=== PATIENT | male | born 1965 | race Caucasian/White ===

== ENCOUNTER → 2018-07-08 | Outpatient (CLI) | payer OTHER, BC | LOC: HYPER 07-06 16:07 | DX: T81.89XA Other complications of procedures, not elsewhere classified, initial encounter (principal); L97.512 Non-pressure chronic ulcer of other part of right foot with fat layer exposed; N18.6 End stage renal disease; K21.9 Gastro-esophageal reflux disease without esophagitis; M10.9 Gout, unspecified; M79.671 Pain in right foot; M86.8X8 Other osteomyelitis, other site; F41.9 Anxiety disorder, unspecified; Z94.0 Kidney transplant status; Z89.421 Acquired absence of other right toe(s); Y92.89 Other specified places as the place of occurrence of the external cause; Y83.8 Other surgical procedures as the cause of abnormal reaction of the patient, or of later complication, without mention of misadventure at the time of the procedure ==

== ENCOUNTER → 2018-07-20 | Outpatient (CLI) | payer OTHER, BC | LOC: HYPER 07:15 | DX: T81.89XD Other complications of procedures, not elsewhere classified, subsequent encounter (principal); L97.512 Non-pressure chronic ulcer of other part of right foot with fat layer exposed; M86.8X7 Other osteomyelitis, ankle and foot; M79.671 Pain in right foot; N18.6 End stage renal disease; M10.9 Gout, unspecified; F41.9 Anxiety disorder, unspecified; Z94.83 Pancreas transplant status; Z94.0 Kidney transplant status; Y83.8 Other surgical procedures as the cause of abnormal reaction of the patient, or of later complication, without mention of misadventure at the time of the procedure ==

== ENCOUNTER → 2018-08-03 | Outpatient (CLI) | payer OTHER, BC | LOC: HYPER 07:12 | DX: T81.89XD Other complications of procedures, not elsewhere classified, subsequent encounter (principal); L97.516 Non-pressure chronic ulcer of other part of right foot with bone involvement without evidence of necrosis; R60.0 Localized edema; M86.8X8 Other osteomyelitis, other site; H40.9 Unspecified glaucoma; K21.9 Gastro-esophageal reflux disease without esophagitis; N18.6 End stage renal disease; M10.9 Gout, unspecified; F41.9 Anxiety disorder, unspecified; Z94.83 Pancreas transplant status; Z94.0 Kidney transplant status; Y83.8 Other surgical procedures as the cause of abnormal reaction of the patient, or of later complication, without mention of misadventure at the time of the procedure ==

== ENCOUNTER → 2018-08-17 | Outpatient (CLI) | payer OTHER, BC | LOC: HYPER 06:55 | DX: T81.89XD Other complications of procedures, not elsewhere classified, subsequent encounter (principal); L97.512 Non-pressure chronic ulcer of other part of right foot with fat layer exposed; L84 Corns and callosities; R60.0 Localized edema; N18.6 End stage renal disease; H40.9 Unspecified glaucoma; M10.9 Gout, unspecified; M86.8X8 Other osteomyelitis, other site; K21.9 Gastro-esophageal reflux disease without esophagitis; F41.9 Anxiety disorder, unspecified; Z94.83 Pancreas transplant status; Z94.0 Kidney transplant status; Y83.8 Other surgical procedures as the cause of abnormal reaction of the patient, or of later complication, without mention of misadventure at the time of the procedure ==

== ENCOUNTER → 2018-08-31 | Outpatient (CLI) | payer OTHER, BC | LOC: HYPER 06:38 | DX: T81.89XD Other complications of procedures, not elsewhere classified, subsequent encounter (principal); L97.512 Non-pressure chronic ulcer of other part of right foot with fat layer exposed; M79.671 Pain in right foot; N18.6 End stage renal disease; L84 Corns and callosities; M10.9 Gout, unspecified; M86.8X7 Other osteomyelitis, ankle and foot; R60.0 Localized edema; F41.9 Anxiety disorder, unspecified; Z94.83 Pancreas transplant status; Z94.0 Kidney transplant status; Y83.8 Other surgical procedures as the cause of abnormal reaction of the patient, or of later complication, without mention of misadventure at the time of the procedure ==

== ENCOUNTER → 2018-09-10 | Outpatient (CLI) | payer OTHER, BC | LOC: RAD 10:57 | DX: M19.071 Primary osteoarthritis, right ankle and foot (principal); M21.171 Varus deformity, not elsewhere classified, right ankle ==

== ENCOUNTER → 2018-09-14 | Outpatient (CLI) | payer OTHER, BC | LOC: HYPER 06:14 | DX: T87.89 Other complications of amputation stump (principal); L97.516 Non-pressure chronic ulcer of other part of right foot with bone involvement without evidence of necrosis; L84 Corns and callosities; R60.0 Localized edema; N18.6 End stage renal disease; H40.9 Unspecified glaucoma; M10.9 Gout, unspecified; M86.8X8 Other osteomyelitis, other site; K21.9 Gastro-esophageal reflux disease without esophagitis; F41.9 Anxiety disorder, unspecified; Z94.83 Pancreas transplant status; Z94.0 Kidney transplant status; Y83.5 Amputation of limb(s) as the cause of abnormal reaction of the patient, or of later complication, without mention of misadventure at the time of the procedure ==

== ENCOUNTER → 2018-09-16 | Outpatient (CLI) | payer OTHER, BC | LOC: MRI 09:05 | DX: T87.89 Other complications of amputation stump (principal); L97.512 Non-pressure chronic ulcer of other part of right foot with fat layer exposed; R60.1 Generalized edema; Y83.8 Other surgical procedures as the cause of abnormal reaction of the patient, or of later complication, without mention of misadventure at the time of the procedure ==

== ENCOUNTER → 2018-09-28 | Outpatient (CLI) | payer OTHER, BC | LOC: HYPER 06:52 | DX: T81.89XD Other complications of procedures, not elsewhere classified, subsequent encounter (principal); L97.512 Non-pressure chronic ulcer of other part of right foot with fat layer exposed; M79.671 Pain in right foot; N18.6 End stage renal disease; L84 Corns and callosities; M10.9 Gout, unspecified; M86.8X8 Other osteomyelitis, other site; R60.0 Localized edema; F41.9 Anxiety disorder, unspecified; Z94.83 Pancreas transplant status; Z94.0 Kidney transplant status; Y83.8 Other surgical procedures as the cause of abnormal reaction of the patient, or of later complication, without mention of misadventure at the time of the procedure ==

== ENCOUNTER → 2018-10-13 | Outpatient (CLI) | payer OTHER, BC | LOC: HYPER 06:47 | DX: T81.89XD Other complications of procedures, not elsewhere classified, subsequent encounter (principal); L97.512 Non-pressure chronic ulcer of other part of right foot with fat layer exposed; N18.6 End stage renal disease; L84 Corns and callosities; M10.9 Gout, unspecified; M79.671 Pain in right foot; M86.8X8 Other osteomyelitis, other site; R60.0 Localized edema; F41.9 Anxiety disorder, unspecified; Z94.83 Pancreas transplant status; Z94.0 Kidney transplant status; Y83.8 Other surgical procedures as the cause of abnormal reaction of the patient, or of later complication, without mention of misadventure at the time of the procedure ==

== ENCOUNTER → 2018-10-27 | Outpatient (CLI) | payer OTHER, BC | LOC: HYPER 06:27 | DX: T81.89XD Other complications of procedures, not elsewhere classified, subsequent encounter (principal); L97.512 Non-pressure chronic ulcer of other part of right foot with fat layer exposed; M79.671 Pain in right foot; N18.6 End stage renal disease; L84 Corns and callosities; M10.9 Gout, unspecified; M86.8X8 Other osteomyelitis, other site; R60.0 Localized edema; F41.9 Anxiety disorder, unspecified; Z94.83 Pancreas transplant status; Z94.0 Kidney transplant status; Y83.8 Other surgical procedures as the cause of abnormal reaction of the patient, or of later complication, without mention of misadventure at the time of the procedure ==

== ENCOUNTER → 2018-11-17 | Outpatient (CLI) | payer OTHER, BC | LOC: HYPER 06:25 | DX: T81.89XD Other complications of procedures, not elsewhere classified, subsequent encounter (principal); L97.512 Non-pressure chronic ulcer of other part of right foot with fat layer exposed; M79.671 Pain in right foot; N18.6 End stage renal disease; R60.0 Localized edema; L84 Corns and callosities; M10.9 Gout, unspecified; M86.8X8 Other osteomyelitis, other site; F41.9 Anxiety disorder, unspecified; Z94.83 Pancreas transplant status; Z94.0 Kidney transplant status; Y83.8 Other surgical procedures as the cause of abnormal reaction of the patient, or of later complication, without mention of misadventure at the time of the procedure ==

== ENCOUNTER → 2018-12-01 | Outpatient (CLI) | payer OTHER, BC | LOC: HYPER 06:53 | DX: T81.89XD Other complications of procedures, not elsewhere classified, subsequent encounter (principal); L97.512 Non-pressure chronic ulcer of other part of right foot with fat layer exposed; N18.6 End stage renal disease; M10.9 Gout, unspecified; M79.671 Pain in right foot; M86.8X7 Other osteomyelitis, ankle and foot; R60.0 Localized edema; F41.9 Anxiety disorder, unspecified; Z94.83 Pancreas transplant status; Z94.0 Kidney transplant status; Y83.8 Other surgical procedures as the cause of abnormal reaction of the patient, or of later complication, without mention of misadventure at the time of the procedure ==

== ENCOUNTER → 2018-12-22 | Outpatient (CLI) | payer OTHER, BC | LOC: HYPER 06:50 | DX: T81.89XD Other complications of procedures, not elsewhere classified, subsequent encounter (principal); L97.516 Non-pressure chronic ulcer of other part of right foot with bone involvement without evidence of necrosis; M86.8X8 Other osteomyelitis, other site; R60.0 Localized edema; N18.6 End stage renal disease; H40.9 Unspecified glaucoma; K21.9 Gastro-esophageal reflux disease without esophagitis; M10.9 Gout, unspecified; F41.9 Anxiety disorder, unspecified; Z94.83 Pancreas transplant status; Z94.0 Kidney transplant status; Y83.8 Other surgical procedures as the cause of abnormal reaction of the patient, or of later complication, without mention of misadventure at the time of the procedure ==

== ENCOUNTER → 2019-01-24 | Outpatient (CLI) | payer OTHER, BC | LOC: HYPER 07:47 | DX: T81.89XD Other complications of procedures, not elsewhere classified, subsequent encounter (principal); L97.516 Non-pressure chronic ulcer of other part of right foot with bone involvement without evidence of necrosis; L84 Corns and callosities; H40.9 Unspecified glaucoma; R60.0 Localized edema; K21.9 Gastro-esophageal reflux disease without esophagitis; M79.671 Pain in right foot; M10.9 Gout, unspecified; M86.8X8 Other osteomyelitis, other site; N18.6 End stage renal disease; F41.9 Anxiety disorder, unspecified; Z94.83 Pancreas transplant status; Z94.0 Kidney transplant status; Y83.8 Other surgical procedures as the cause of abnormal reaction of the patient, or of later complication, without mention of misadventure at the time of the procedure ==

== ENCOUNTER → 2019-02-21 | Outpatient (CLI) | payer OTHER, BC | LOC: HYPER 11:30 | DX: T81.89XD Other complications of procedures, not elsewhere classified, subsequent encounter (principal); L97.512 Non-pressure chronic ulcer of other part of right foot with fat layer exposed; M79.671 Pain in right foot; N18.6 End stage renal disease; M86.8X8 Other osteomyelitis, other site; M10.9 Gout, unspecified; R60.0 Localized edema; F41.9 Anxiety disorder, unspecified; Z94.83 Pancreas transplant status; Z94.0 Kidney transplant status; Y83.8 Other surgical procedures as the cause of abnormal reaction of the patient, or of later complication, without mention of misadventure at the time of the procedure ==

== ENCOUNTER → 2019-09-14 | Outpatient (CLI) | payer OTHER, BC | LOC: HYPER 08:29 | DX: T81.89XD Other complications of procedures, not elsewhere classified, subsequent encounter (principal); L97.516 Non-pressure chronic ulcer of other part of right foot with bone involvement without evidence of necrosis; L84 Corns and callosities; R60.0 Localized edema; N18.6 End stage renal disease; H40.9 Unspecified glaucoma; M86.8X8 Other osteomyelitis, other site; M10.9 Gout, unspecified; M79.671 Pain in right foot; K21.9 Gastro-esophageal reflux disease without esophagitis; F41.9 Anxiety disorder, unspecified; Z98.49 Cataract extraction status, unspecified eye; Z94.83 Pancreas transplant status; Z94.0 Kidney transplant status; Y83.8 Other surgical procedures as the cause of abnormal reaction of the patient, or of later complication, without mention of misadventure at the time of the procedure ==